=== PATIENT | male | born 1965 | race African-American/Black ===

== ENCOUNTER 2016-04-13 04:44 | Inpatient (IN) | payer MEDICAID ==
[~2016-04-13] VITALS: Ht 170.2 cm; Wt 112.7 kg
[~2016-04-13 04:44] MED LIST: ASPI-1079 PO; ATOR20TA PO; BENA10TA3 PO; HYDR-523 PO; LEVO300T6 PO; METO25TA6 PO
[2016-04-13] MEDS ORDERED: ASPIRIN 81MG TABLET PO ONE (05:15)
[2016-04-13] MEDS ORDERED: ONDANSETRON HCL 4MG/2ML VIAL IV ONE (05:30)
[2016-04-13] MEDS ORDERED: MORPHINE SULFATE 4 MG/ML CPJ (NOT FOR IM USE) IV ONE (05:30)
[2016-04-13 05:57] LABS: BASOPHILS % 1.5 % (0.0-2.0); EOSINOPHILS % 1.1 % (0.0-5.0); HEMATOCRIT. 34.9 % (42.0-52.0); HEMOGLOBIN. 11.7 g/dL (14.0-18.0); LYMPHOCYTES % 23.7 % (20.0-50.0); MEAN CORPUSCULAR HEMOGLOBIN 30.9 pg (28.0-32.0); MEAN CORPUSCULAR HGB CONC 33.6 g/dL (31.0-37.0); MONOCYTES % 5.3 % (2.0-8.0); NEUTROPHILS % 68.4 % (40.0-76.0); PLATELET 243 x1000/uL (130-400); RED BLOOD CELL COUNT 3.79 mill/uL (4.7-6.1); RED CELL DISTRIBUTION WIDTH 15.7 % (11.6-14.6); WHITE BLOOD COUNT 8.1 x1000/uL (4.5-11.0)
[2016-04-13 06:05] LABS: INR 1.1; PROTHROMBIN TIME 11.1 sec
[2016-04-13 06:20] LABS: ALANINE AMINOTRANSFERASE 17 IU/L (13-61); ALBUMIN 3.8 g/dL (3.4-5.0); ANION GAP 9; CALCIUM 8.4 mg/dL (8.5-10.1); CARBON DIOXIDE 31 mEq/L (21-32); CHLORIDE 106 mEq/L (98-107); INDEX HEMOLYSI 1 (1-3); INDEX ICTERIC 1 (1-4); INDEX LIPEMIC 1 (1-3); NT PRO B-TYPE NATRIURETIC PEP 17 pg/mL (5-125); TROPONIN I < 0.02 ng/mL (0.00-0.04); UREA NITROGEN BLOOD 19 mg/dL (7-21); eGFR 43 mL/min (>60)
[2016-04-13 08:03] LABS: CLARITY URINE CLEAR (CLEAR); COLOR URINE YELLOW (YELLOW); GLUCOSE URINE NEGATIVE (NEGATIVE); KETONES URINE NEGATIVE (NEGATIVE); LEUKOCYTE ESTERASE URINE TRACE (NEGATIVE); NITRITE URINE NEGATIVE (NEGATIVE); OCCULT BLOOD URINE NEGATIVE (NEGATIVE); PH URINE 6.5 (4.5-8.0); PROTEIN URINE NEGATIVE (NEGATIVE); SPECIFIC GRAVITY URINE 1.024 (1.005-1.030); UROBILINOGEN URINE 0.2 E.U./dL (0.2-1.0)
[2016-04-13 08:17] LABS: *AMPHETAMINES SCREEN URINE NEGATIVE (NEGATIVE); *BARBITURATES SCREEN URINE NEGATIVE (NEGATIVE); *BENZODIAZEPINES SCREEN URINE NEGATIVE (NEGATIVE); *COCAINE SCREEN URINE PRESUMTIVE POSITIVE (NEGATIVE); CANNABINOID URINE SCREEN PRESUMTIVE POSITIVE (NEGATIVE); ECSTASY MDMA SCREEN URINE NEGATIVE (NEGATIVE); METHADONE URINE SCREEN NEGATIVE (NEGATIVE); OPIATES URINE SCREEN PRESUMTIVE POSITIVE (NEGATIVE); PHENCYCLIDINE URINE SCREEN NEGATIVE (NEGATIVE)
[2016-04-13 08:40] LABS: MUCUS URINE 1+ /lpf (NONE/TRACE); SQUAMOUS EPITHELIAL CELL URINE 2+ /lpf (RARE/1+)
[2016-04-13 08:41] LABS: BACTERIA URINE TRACE; RBC URINE 0-2 /hpf (0-2); WBC URINE 0-2 /hpf (0-2)
[2016-04-13 08:42] LABS: YEAST URINE FEW
[2016-04-13 12:00] VITALS: BP 123/84
[2016-04-13 12:30] VITALS: BP 123/84
[2016-04-13] MEDS ORDERED: LORAZEPAM 1MG TABLET PO PRN (12:45)
[2016-04-13] MEDS ORDERED: IPRATROPIUM/ALBUTEROL 0.5-3(2.5)MG/3ML NEB INH PRN (12:45)
[2016-04-13] MEDS ORDERED: ACETAMINOPHEN 325MG TABLET PO PRN (12:45)
[2016-04-13] MEDS ORDERED: ONDANSETRON HCL 4MG/2ML VIAL IV PRN (12:45)
[2016-04-13] MEDS ORDERED: CLONIDINE 0.1MG TABLET PO PRN (12:45)
[2016-04-13] MEDS ORDERED: DOCUSATE SODIUM 100MG CAPSULE PO PRN (12:45)
[2016-04-13] MEDS ORDERED: ENOXAPARIN 40MG/0.4ML SYR SUBCUT SCH (13:30)
[2016-04-13] MEDS ORDERED: DEXTROSE 50% WATER 50ML SYRINGE IV PRN ×2 (13:45→14:15)
[2016-04-13] MEDS: LISINOPRIL 10MG TABLET PO SCH (14:05)
[2016-04-13] MEDS: AMLODIPINE 10MG TABLET PO SCH (14:05)
[2016-04-13 15:48] LABS: CREATINE KINASE MB FRACTION 1.7 ng/mL (0.5-3.6); TROPONIN I < 0.02 ng/mL (0.00-0.04)
[2016-04-13 16:00] VITALS: BP 142/86
[2016-04-13] MEDS ORDERED: BLOOD SUGAR DIAGNOSTIC STRIP TEST SCH (16:45)
[2016-04-13] MEDS ORDERED: INSULIN LISPRO 100 UNITS/ML SUBCUT SCH (17:15)
[2016-04-13 20:00] VITALS: BP 115/69
[2016-04-13] MEDS: ATORVASTATIN CALCIUM 40MG TABLET PO SCH (21:52)
[2016-04-13] MEDS: ENOXAPARIN 30MG/0.3ML SYR SUBCUT SCH (21:55)
[2016-04-14] VITALS: BP 99/74
[2016-04-14 00:18] LABS: CREATINE KINASE MB FRACTION 1.5 ng/mL (0.5-3.6); TROPONIN I < 0.02 ng/mL (0.00-0.04)
[2016-04-14 04:00] VITALS: BP 112/70
[2016-04-14 08:28] LABS: BASOPHILS % 0.4 % (0.0-2.0); EOSINOPHILS % 1.3 % (0.0-5.0); HEMATOCRIT. 36.8 % (42.0-52.0); LYMPHOCYTES % 24.2 % (20.0-50.0); MEAN CORPUSCULAR HGB CONC 32.6 g/dL (31.0-37.0); MEAN CORPUSCULAR VOLUME 91.8 fL (80.0-94.0); MEAN PLATELET VOLUME 7.9 fl (7.4-10.4); MONOCYTES % 4.1 % (2.0-8.0); PLATELET 239 x1000/uL (130-400); RED CELL DISTRIBUTION WIDTH 15.7 % (11.6-14.6); WHITE BLOOD COUNT 7.2 x1000/uL (4.5-11.0)
[2016-04-14 08:30] VITALS: BP 128/80
[2016-04-14 08:45] LABS: ALANINE AMINOTRANSFERASE 16 IU/L (13-61); ALBUMIN 3.4 g/dL (3.4-5.0); ANION GAP 11; CALCIUM 8.3 mg/dL (8.5-10.1); CARBON DIOXIDE 29 mEq/L (21-32); CHLORIDE 105 mEq/L (98-107); HDL CHOLESTEROL 36 mg/dL (40-59); INDEX HEMOLYSI 1 (1-3); INDEX ICTERIC 1 (1-4); INDEX LIPEMIC 1 (1-3); LDL CHOLESTEROL 130 mg/dL (5-100); T3 FREE 1.15 pg/ml (2.18-3.98); T4 FREE 0.47 ng/dL (0.76-1.46); TRIGLYCERIDE 172 mg/dL (0-150); UREA NITROGEN BLOOD 18 mg/dL (7-21); eGFR 49 mL/min (>60)
[2016-04-14] MEDS: ENOXAPARIN 30MG/0.3ML SYR SUBCUT SCH ×2 (09:04→22:24)
[2016-04-14] MEDS: ASPIRIN 325MG EC TABLET PO SCH (09:04)
[2016-04-14] MEDS: LISINOPRIL 10MG TABLET PO SCH (09:04)
[2016-04-14] MEDS: AMLODIPINE 10MG TABLET PO SCH (09:04)
[2016-04-14] MEDS ORDERED: LEVOTHYROXINE SODIUM 50MCG TABLET PO SCH (11:00)
[2016-04-14 12:00] VITALS: BP 127/81
[2016-04-14 16:00] VITALS: BP 108/61
[2016-04-14 20:00] VITALS: BP 123/74
[2016-04-14] MEDS: ATORVASTATIN CALCIUM 40MG TABLET PO SCH (22:23)
[2016-04-14] MEDS: HYDROCODONE/ACETAMINOPHEN 5/325MG TABLET PO PRN (22:25)
[2016-04-15] VITALS (7 sets, daily range): BP systolic 113–143; BP diastolic 65–92
[2016-04-15] MEDS ORDERED: LEVOTHYROXINE SODIUM 100 MCG/ VIAL IV SCH (00:23)
[2016-04-15 06:20] LABS: HEMATOCRIT. 36.1 % (42.0-52.0); MEAN CORPUSCULAR HGB CONC 33.2 g/dL (31.0-37.0); MEAN CORPUSCULAR VOLUME 90.4 fL (80.0-94.0); PLATELET 244 x1000/uL (130-400); RED BLOOD CELL COUNT 3.99 mill/uL (4.7-6.1); RED CELL DISTRIBUTION WIDTH 16.1 % (11.6-14.6); WHITE BLOOD COUNT 6.4 x1000/uL (4.5-11.0)
[2016-04-15 06:23] LABS: DIFFERENTIAL COMMENT 1
[2016-04-15] MEDS: LEVOTHYROXINE SODIUM 100 MCG/ VIAL IV SCH (06:44)
[2016-04-15 06:50] LABS: CALCIUM 8.4 mg/dL (8.5-10.1)
[2016-04-15] MEDS: ENOXAPARIN 30MG/0.3ML SYR SUBCUT SCH ×2 (09:00→21:24)
[2016-04-15] MEDS: ASPIRIN 325MG EC TABLET PO SCH (10:02)
[2016-04-15] MEDS: LISINOPRIL 10MG TABLET PO SCH (10:02)
[2016-04-15] MEDS: AMLODIPINE 10MG TABLET PO SCH (10:03)
[2016-04-15 11:44] LABS: PLATELET ESTIMATE NORMAL
[2016-04-15] MEDS: HYDROCODONE/ACETAMINOPHEN 5/325MG TABLET PO PRN (18:55)
[2016-04-15] MEDS: MORPHINE SULFATE 2 MG/ML CPJ (NOT FOR IM USE) IV PRN (21:24)
[2016-04-15] MEDS: ATORVASTATIN CALCIUM 40MG TABLET PO SCH ×2 (21:24→21:32)
[2016-04-16] VITALS: BP 114/72
[2016-04-16 04:00] VITALS: BP 118/68
[2016-04-16] MEDS: LEVOTHYROXINE SODIUM 100 MCG/ VIAL IV SCH (06:13)
[2016-04-16] MEDS: HYDROCODONE/ACETAMINOPHEN 5/325MG TABLET PO PRN (06:14)
[2016-04-16 08:00] VITALS: BP 120/73
[2016-04-16] MEDS: LISINOPRIL 10MG TABLET PO SCH (09:35)
[2016-04-16] MEDS: ASPIRIN 325MG EC TABLET PO SCH (09:35)
[2016-04-16] MEDS: AMLODIPINE 10MG TABLET PO SCH (09:35)
[2016-04-16] MEDS: ENOXAPARIN 30MG/0.3ML SYR SUBCUT SCH ×2 (09:36→20:31)
[2016-04-16 11:16] LABS: BASOPHILS % 1.1 % (0.0-2.0); EOSINOPHILS % 1.9 % (0.0-5.0); HEMATOCRIT. 34.9 % (42.0-52.0); HEMOGLOBIN. 11.7 g/dL (14.0-18.0); LYMPHOCYTES % 25.5 % (20.0-50.0); MEAN CORPUSCULAR HEMOGLOBIN 30.7 pg (28.0-32.0); MEAN CORPUSCULAR HGB CONC 33.4 g/dL (31.0-37.0); MEAN CORPUSCULAR VOLUME 91.9 fL (80.0-94.0); MEAN PLATELET VOLUME 8.5 fl (7.4-10.4); MONOCYTES % 5.6 % (2.0-8.0); NEUTROPHILS % 65.9 % (40.0-76.0); PLATELET 229 x1000/uL (130-400); RED CELL DISTRIBUTION WIDTH 15.9 % (11.6-14.6)
[2016-04-16 11:35] LABS: ALANINE AMINOTRANSFERASE 16 IU/L (13-61); ALBUMIN 3.2 g/dL (3.4-5.0); ANION GAP 9; CALCIUM 8.2 mg/dL (8.5-10.1); CARBON DIOXIDE 28 mEq/L (21-32); CHLORIDE 106 mEq/L (98-107); INDEX HEMOLYSI 1 (1-3); INDEX ICTERIC 1 (1-4); INDEX LIPEMIC 1 (1-3); UREA NITROGEN BLOOD 16 mg/dL (7-21); eGFR 56 mL/min (>60)
[2016-04-16 12:00] VITALS: BP 122/72
[2016-04-16 16:00] VITALS: BP 128/76
[2016-04-16 20:00] VITALS: BP 124/83
[2016-04-16] MEDS: ATORVASTATIN CALCIUM 40MG TABLET PO SCH (20:30)
[2016-04-16] MEDS: MORPHINE SULFATE 2 MG/ML CPJ (NOT FOR IM USE) IV PRN (23:48)
[2016-04-17] VITALS: BP 130/82
[2016-04-17 04:00] VITALS: BP 128/74
[2016-04-17] MEDS: LEVOTHYROXINE SODIUM 100 MCG/ VIAL IV SCH (06:19)
[2016-04-17 06:50] LABS: BASOPHILS % 0.8 % (0.0-2.0); EOSINOPHILS % 2.1 % (0.0-5.0); HEMATOCRIT. 33.7 % (42.0-52.0); HEMOGLOBIN. 11.2 g/dL (14.0-18.0); LYMPHOCYTES % 28.5 % (20.0-50.0); MEAN CORPUSCULAR HEMOGLOBIN 30.6 pg (28.0-32.0); MEAN CORPUSCULAR HGB CONC 33.3 g/dL (31.0-37.0); MEAN CORPUSCULAR VOLUME 91.9 fL (80.0-94.0); MEAN PLATELET VOLUME 8.7 fl (7.4-10.4); MONOCYTES % 6.2 % (2.0-8.0); NEUTROPHILS % 62.4 % (40.0-76.0); PLATELET 212 x1000/uL (130-400); RED BLOOD CELL COUNT 3.66 mill/uL (4.7-6.1); RED CELL DISTRIBUTION WIDTH 15.9 % (11.6-14.6); WHITE BLOOD COUNT 7.7 x1000/uL (4.5-11.0)
[2016-04-17 08:00] VITALS: BP 124/75
[2016-04-17 08:00] LABS: CALCIUM 8.7 mg/dL (8.5-10.1)
[2016-04-17] MEDS: LISINOPRIL 10MG TABLET PO SCH (09:16)
[2016-04-17] MEDS: AMLODIPINE 10MG TABLET PO SCH (09:16)
[2016-04-17] MEDS: ASPIRIN 325MG EC TABLET PO SCH (09:16)
[2016-04-17] MEDS: ENOXAPARIN 30MG/0.3ML SYR SUBCUT SCH ×2 (09:19→20:41)
[2016-04-17 12:00] VITALS: BP 129/80
[2016-04-17 16:00] VITALS: BP 135/83
[2016-04-17 20:00] VITALS: BP 122/74
[2016-04-17] MEDS: ATORVASTATIN CALCIUM 40MG TABLET PO SCH (20:41)
[2016-04-17] MEDS: MORPHINE SULFATE 2 MG/ML CPJ (NOT FOR IM USE) IV PRN (20:55)
[2016-04-18] VITALS: BP 128/75
[2016-04-18 04:00] VITALS: BP 123/78
[2016-04-18] MEDS: LEVOTHYROXINE SODIUM 100 MCG/ VIAL IV SCH (07:05)
[2016-04-18 08:00] VITALS: BP 127/76
[2016-04-18] MEDS: ASPIRIN 325MG EC TABLET PO SCH (08:39)
[2016-04-18] MEDS: AMLODIPINE 10MG TABLET PO SCH (08:40)
[2016-04-18] MEDS: LISINOPRIL 10MG TABLET PO SCH (08:40)
[2016-04-18] MEDS: ENOXAPARIN 30MG/0.3ML SYR SUBCUT SCH (08:41)
[2016-04-18] MEDS ORDERED: LEVO300T6 PO (11:48)
[2016-04-18] MEDS ORDERED: ASPI-1079 PO (11:48)
[2016-04-18] MEDS ORDERED: LIP40 PO (11:48)
[2016-04-18] MEDS ORDERED: Lisinopril PO (11:48)
[2016-04-18] MEDS ORDERED: AMLO10TA80 PO (11:48)
[2016-04-18 12:00] VITALS: BP 120/80
[2016-04-18 14:52] VITALS: BP 124/82
[2016-04-18 18:09] VITALS: BP 120/71
== END 2016-04-18 18:40 | disposition home or self-care (01) | DRG 194 ==
LOC: ER 04:45 → 5WST 07:24 → SUPCPDRO 08:23
PROVIDERS: ADMIT Internal Medicine; ATTEND Internal Medicine
DX: I13.0 Hypertensive heart and chronic kidney disease with heart failure and stage 1 through stage 4 chronic kidney disease, or unspecified chronic kidney disease (principal); E11.22 Type 2 diabetes mellitus with diabetic chronic kidney disease; N17.9 Acute kidney failure, unspecified; E27.8 Other specified disorders of adrenal gland; N18.3 Chronic kidney disease, stage 3 (moderate); E11.65 Type 2 diabetes mellitus with hyperglycemia; E66.01 Morbid (severe) obesity due to excess calories; F14.188 Cocaine abuse with other cocaine-induced disorder; I50.9 Heart failure, unspecified; E03.9 Hypothyroidism, unspecified; E78.00 Pure hypercholesterolemia, unspecified; F17.210 Nicotine dependence, cigarettes, uncomplicated; G47.30 Sleep apnea, unspecified; I25.10 Atherosclerotic heart disease of native coronary artery without angina pectoris; G89.29 Other chronic pain; N32.89 Other specified disorders of bladder; F12.10 Cannabis abuse, uncomplicated; M54.2 Cervicalgia; I70.8 Atherosclerosis of other arteries; M54.9 Dorsalgia, unspecified; R26.9 Unspecified abnormalities of gait and mobility; Z59.0 Homelessness; Z68.38 Body mass index [BMI] 38.0-38.9, adult; Z91.14 Patient's other noncompliance with medication regimen; Z87.828 Personal history of other (healed) physical injury and trauma; Z90.49 Acquired absence of other specified parts of digestive tract; Z82.49 Family history of ischemic heart disease and other diseases of the circulatory system
CPT/HCPCS: 36415; 71010; 76536; 80048; 80053; 80061; 80305; 81001; 82533; 82553; 83880; 84439; 84443; 84481; 84484; 85007; 85025; 85027; 85610; 87040; 87070; 87493; 93005; 93970; 94640; 94660; 96374; 96375; 97110; 97162; 97530; 99285; 99406; J1650; J2270; J2405; J3490; J7620

== ENCOUNTER 2016-06-13 19:40 | Inpatient (IN) | payer MEDICAID ==
[~2016-06-13] VITALS: Ht 182.9 cm; Wt 158.8 kg
[~2016-06-13 19:40] MED LIST changes: +AMLO10TA80 PO; -ATOR20TA PO; -BENA10TA3 PO; +LIP40 PO; +Lisinopril PO; -METO25TA6 PO
[2016-06-13] MEDS ORDERED: ONDANSETRON HCL 4MG/2ML VIAL IV STA (20:48)
[2016-06-13] MEDS ORDERED: ONDANSETRON 4MG ODT PO ONE (21:45)
[2016-06-13] MEDS ORDERED: HYDROCODONE/ACETAMINOPHEN 5/325MG TABLET PO ONE (21:45)
[2016-06-13] MEDS ORDERED: ASPIRIN 325MG TABLET PO ONE (21:45)
[2016-06-13 22:20] LABS: EOSINOPHILS % 1.6 % (0.0-5.0); HEMATOCRIT. 37.6 % (42.0-52.0); HEMOGLOBIN. 12.5 g/dL (14.0-18.0); LYMPHOCYTES % 19.8 % (20.0-50.0); MEAN CORPUSCULAR HEMOGLOBIN 30.7 pg (28.0-32.0); MEAN CORPUSCULAR HGB CONC 33.3 g/dL (31.0-37.0); MEAN CORPUSCULAR VOLUME 92.2 fL (80.0-94.0); MEAN PLATELET VOLUME 7.9 fl (7.4-10.4); MONOCYTES % 5.9 % (2.0-8.0); NEUTROPHILS % 71.7 % (40.0-76.0); PLATELET 219 x1000/uL (130-400); RED BLOOD CELL COUNT 4.07 mill/uL (4.7-6.1); RED CELL DISTRIBUTION WIDTH 15.9 % (11.6-14.6); WHITE BLOOD COUNT 9.4 x1000/uL (4.5-11.0)
[2016-06-13 22:25] LABS: CHLORIDE 105 mEq/L (98-107); INDEX HEMOLYSI 1 (1-3); INDEX ICTERIC 1 (1-4); INDEX LIPEMIC 1 (1-3)
[2016-06-13 22:26] LABS: PARTIAL THROMBOPLASTIN TIME 27.3 sec (24.0-34.0); PROTHROMBIN TIME 10.8 sec
[2016-06-13] MEDS ORDERED: LORAZEPAM 1MG TABLET PO ONE (22:30)
[2016-06-13] MEDS ORDERED: HYDRALAZINE 20MG/ML VIAL IV ONE (22:30)
[2016-06-13 22:34] LABS: ALANINE AMINOTRANSFERASE 25 IU/L (13-61); ALBUMIN 3.4 g/dL (3.4-5.0); ANION GAP 12; CALCIUM 8.4 mg/dL (8.5-10.1); CARBON DIOXIDE 28 mEq/L (21-32); ETHANOL BLOOD < 10 mg/dL; LIPASE 85 IU/L (73-393); TROPONIN I < 0.02 ng/mL (0.00-0.04); UREA NITROGEN BLOOD 18 mg/dL (7-21); eGFR 46 mL/min (>60)
[2016-06-13 22:43] LABS: CREATINE KINASE 1074 IU/L (39-308)
[2016-06-13] MEDS ORDERED: CLONIDINE 0.1MG TABLET PO PRN (23:30)
[2016-06-13] MEDS ORDERED: DIPHENHYDRAMINE 50MG/ML VIAL IV PRN (23:30)
[2016-06-13] MEDS ORDERED: ACETAMINOPHEN 325MG TABLET PO PRN (23:30)
[2016-06-13] MEDS ORDERED: ONDANSETRON HCL 4MG/2ML VIAL IV PRN (23:30)
[2016-06-13] MEDS ORDERED: IPRATROPIUM/ALBUTEROL 0.5-3(2.5)MG/3ML NEB INH PRN (23:30)
[2016-06-14 01:59] LABS: CLARITY URINE CLEAR (CLEAR); COLOR URINE YELLOW (YELLOW); GLUCOSE URINE NEGATIVE (NEGATIVE); KETONES URINE TRACE (NEGATIVE); LEUKOCYTE ESTERASE URINE TRACE (NEGATIVE); NITRITE URINE NEGATIVE (NEGATIVE); OCCULT BLOOD URINE NEGATIVE (NEGATIVE); PH URINE 5.5 (4.5-8.0); PROTEIN URINE TRACE (NEGATIVE); SPECIFIC GRAVITY URINE 1.027 (1.005-1.030)
[2016-06-14 02:14] LABS: *AMPHETAMINES SCREEN URINE NEGATIVE (NEGATIVE); *BARBITURATES SCREEN URINE NEGATIVE (NEGATIVE); *BENZODIAZEPINES SCREEN URINE NEGATIVE (NEGATIVE); *COCAINE SCREEN URINE PRESUMTIVE POSITIVE (NEGATIVE); CANNABINOID URINE SCREEN PRESUMTIVE POSITIVE (NEGATIVE); ECSTASY MDMA SCREEN URINE NEGATIVE (NEGATIVE); METHADONE URINE SCREEN NEGATIVE (NEGATIVE); OPIATES URINE SCREEN NEGATIVE (NEGATIVE); PHENCYCLIDINE URINE SCREEN NEGATIVE (NEGATIVE)
[2016-06-14 02:30] LABS: SQUAMOUS EPITHELIAL CELL URINE FEW /lpf (RARE/1+)
[2016-06-14 02:33] LABS: WBC URINE 0-2 /hpf (0-2)
[2016-06-14 02:34] LABS: RBC URINE 0-2 /hpf (0-2)
[2016-06-14 02:40] LABS: BACTERIA URINE TRACE
[2016-06-14 05:20] LABS: EOSINOPHILS % 1.2 % (0.0-5.0); HEMATOCRIT. 38.3 % (42.0-52.0); HEMOGLOBIN. 12.6 g/dL (14.0-18.0); LYMPHOCYTES % 18.5 % (20.0-50.0); MEAN CORPUSCULAR HEMOGLOBIN 30.3 pg (28.0-32.0); MEAN CORPUSCULAR HGB CONC 32.9 g/dL (31.0-37.0); MEAN CORPUSCULAR VOLUME 92.3 fL (80.0-94.0); MEAN PLATELET VOLUME 8.4 fl (7.4-10.4); MONOCYTES % 8.5 % (2.0-8.0); NEUTROPHILS % 70.8 % (40.0-76.0); PLATELET 213 x1000/uL (130-400); RED BLOOD CELL COUNT 4.15 mill/uL (4.7-6.1); RED CELL DISTRIBUTION WIDTH 16.3 % (11.6-14.6); WHITE BLOOD COUNT 10.4 x1000/uL (4.5-11.0)
[2016-06-14 05:40] LABS: ALANINE AMINOTRANSFERASE 24 IU/L (13-61); ALBUMIN 3.5 g/dL (3.4-5.0); ANION GAP 11; CALCIUM 8.4 mg/dL (8.5-10.1); CARBON DIOXIDE 30 mEq/L (21-32); CHLORIDE 104 mEq/L (98-107); HDL CHOLESTEROL 43 mg/dL (40-59); INDEX HEMOLYSI 1 (1-3); INDEX ICTERIC 1 (1-4); INDEX LIPEMIC 1 (1-3); LDL CHOLESTEROL 225 mg/dL (5-100); TRIGLYCERIDE 153 mg/dL (0-150); TROPONIN I < 0.02 ng/mL (0.00-0.04); UREA NITROGEN BLOOD 16 mg/dL (7-21); eGFR 56 mL/min (>60)
[2016-06-14] MEDS ORDERED: IPRATROPIUM/ALBUTEROL 0.5-3(2.5)MG/3ML NEB HHN PRN (11:00)
[2016-06-14] MEDS: HYDROCODONE/ACETAMINOPHEN 5/325MG TABLET PO PRN ×3 (11:39→21:11)
[2016-06-14] MEDS: LEVOFLOXACIN 500MG PREMIX 100 ML IV SCH ×2 (11:40→15:29)
[2016-06-14 12:00] VITALS: BP 99/75
[2016-06-14 12:40] VITALS: BP 99/75
[2016-06-14] MEDS ORDERED: SODIUM CHLORIDE 10% FOR INH 15ML VIAL NEB INH NR (13:30)
[2016-06-14 16:00] VITALS: BP 128/92
[2016-06-14] MEDS: SODIUM CHLORIDE 0.9% 1,000 ML IV SCH (17:04)
[2016-06-14 20:44] VITALS: BP 123/75
[2016-06-14] MEDS ORDERED: ATORVASTATIN CALCIUM 40MG TABLET PO SCH (21:00)
[2016-06-14] MEDS: VERAPAMIL HCL 80 MG TABLET PO SCH (21:11)
[2016-06-14 23:57] VITALS: BP 120/70
[2016-06-15] MEDS: HYDROCODONE/ACETAMINOPHEN 5/325MG TABLET PO PRN ×4 (01:23→16:28)
[2016-06-15 04:50] VITALS: BP 132/87
[2016-06-15] MEDS: VERAPAMIL HCL 80 MG TABLET PO SCH ×3 (05:44→21:55)
[2016-06-15 06:57] LABS: BASOPHILS % 0.7 % (0.0-2.0); HEMOGLOBIN. 11.6 g/dL (14.0-18.0); MEAN CORPUSCULAR HEMOGLOBIN 30.6 pg (28.0-32.0); MEAN CORPUSCULAR HGB CONC 33.2 g/dL (31.0-37.0); MEAN CORPUSCULAR VOLUME 92.3 fL (80.0-94.0); MEAN PLATELET VOLUME 8.1 fl (7.4-10.4); MONOCYTES % 8.5 % (2.0-8.0); NEUTROPHILS % 73.8 % (40.0-76.0); PLATELET 201 x1000/uL (130-400); RED BLOOD CELL COUNT 3.79 mill/uL (4.7-6.1); WHITE BLOOD COUNT 8.9 x1000/uL (4.5-11.0)
[2016-06-15 07:19] LABS: CALCIUM 8.8 mg/dL (8.5-10.1)
[2016-06-15 08:00] VITALS: BP 134/85
[2016-06-15] MEDS: IPRATROPIUM/ALBUTEROL 0.5-3(2.5)MG/3ML NEB HHN SCH ×5 (09:15→23:48)
[2016-06-15] MEDS: SODIUM CHLORIDE 0.9% 1,000 ML IV SCH (11:05)
[2016-06-15 11:14] LABS: CREATINE KINASE 394 IU/L (39-308); INDEX HEMOLYSI 1 (1-3)
[2016-06-15] MEDS: LEVOFLOXACIN 500MG PREMIX 100 ML IV SCH (13:28)
[2016-06-15] MEDS ORDERED: FUROSEMIDE 20MG/2ML VIAL IVP NR (14:30)
[2016-06-15 15:38] LABS: BG CARBOXYHEMOGLOBIN 0.5 % (0.5-1.5); BG DEOXYHEMOGLOBIN 7.9 % (0.0-5.0); BG FRACTION INSPIRED OXYGEN 40; BG HCO3 ACT 27.1 mmol/L (22.0-26.0); BG METHEMOGLOBIN 0.1 % (0.0-1.5); BG OXYGEN SATURATION 92.1 % (92.0-98.5); BG OXYHEMOGLOBIN 91.5 % (94.0-97.0); BG PCO2 44.2 mmHg (35.0-45.0); BG PH 7.405 (7.350-7.450); BG PO2 61.9 mmHg (75.0-100.0); BG SAMPLE SITE RIGHT RADIAL; BG VENT MODE NASAL CANNULA
[2016-06-15 20:00] VITALS: BP 129/79
[2016-06-16] VITALS: BP 132/72
[2016-06-16 04:00] VITALS: BP 176/91
[2016-06-16] MEDS: IPRATROPIUM/ALBUTEROL 0.5-3(2.5)MG/3ML NEB HHN SCH ×6 (05:25→23:59)
[2016-06-16] MEDS: VERAPAMIL HCL 80 MG TABLET PO SCH ×3 (06:10→21:03)
[2016-06-16 07:01] LABS: BASOPHILS % 0.5 % (0.0-2.0); EOSINOPHILS % 1.6 % (0.0-5.0); HEMATOCRIT. 33.8 % (42.0-52.0); HEMOGLOBIN. 11.2 g/dL (14.0-18.0); LYMPHOCYTES % 18.8 % (20.0-50.0); MEAN CORPUSCULAR HEMOGLOBIN 30.3 pg (28.0-32.0); MEAN CORPUSCULAR VOLUME 91.8 fL (80.0-94.0); MEAN PLATELET VOLUME 8.2 fl (7.4-10.4); MONOCYTES % 6.2 % (2.0-8.0); NEUTROPHILS % 72.9 % (40.0-76.0); PLATELET 209 x1000/uL (130-400); RED BLOOD CELL COUNT 3.68 mill/uL (4.7-6.1)
[2016-06-16 07:09] LABS: CALCIUM 8.9 mg/dL (8.5-10.1); MAGNESIUM 2.5 mg/dL (1.8-2.4); PHOSPHORUS 2.7 mg/dL (2.5-4.9)
[2016-06-16 08:00] VITALS: BP 117/86
[2016-06-16] MEDS: LEVOFLOXACIN 500MG PREMIX 100 ML IV SCH (11:10)
[2016-06-16 11:54] VITALS: BP 104/69
[2016-06-16 13:00] LABS: BG BASE EXCESS 2.6 mmol/L (-2.0-2.0); BG CARBOXYHEMOGLOBIN 0.1 % (0.5-1.5); BG DEOXYHEMOGLOBIN 13.6 % (0.0-5.0); BG FRACTION INSPIRED OXYGEN 21; BG HCO3 ACT 26.3 mmol/L (22.0-26.0); BG OXYGEN SATURATION 86.4 % (92.0-98.5); BG OXYHEMOGLOBIN 86.3 % (94.0-97.0); BG PCO2 37.1 mmHg (35.0-45.0); BG PH 7.468 (7.350-7.450); BG PO2 49.3 mmHg (75.0-100.0); BG SAMPLE SITE RIGHT RADIAL; BG TOTAL HEMOGLOBIN 11.8 g/dL (12.0-18.0); BG VENT MODE ROOM AIR
[2016-06-16] MEDS: FUROSEMIDE 40MG/4ML VIAL IVP SCH (15:24)
[2016-06-16 16:00] VITALS: BP 144/90
[2016-06-16 20:00] VITALS: BP 140/94
[2016-06-16] MEDS: HYDROCODONE/ACETAMINOPHEN 5/325MG TABLET PO PRN (21:55)
[2016-06-17] VITALS: BP 109/74
[2016-06-17] MEDS: IPRATROPIUM/ALBUTEROL 0.5-3(2.5)MG/3ML NEB HHN SCH ×6 (03:48→23:54)
[2016-06-17 04:00] VITALS: BP 118/84
[2016-06-17] MEDS: VERAPAMIL HCL 80 MG TABLET PO SCH (05:51)
[2016-06-17 07:33] LABS: BASOPHILS % 1.1 % (0.0-2.0); EOSINOPHILS % 2.2 % (0.0-5.0); HEMOGLOBIN. 10.7 g/dL (14.0-18.0); LYMPHOCYTES % 18.2 % (20.0-50.0); MEAN CORPUSCULAR HEMOGLOBIN 30.6 pg (28.0-32.0); MEAN CORPUSCULAR HGB CONC 33.4 g/dL (31.0-37.0); MEAN CORPUSCULAR VOLUME 91.5 fL (80.0-94.0); MEAN PLATELET VOLUME 8.4 fl (7.4-10.4); NEUTROPHILS % 71.5 % (40.0-76.0); PLATELET 205 x1000/uL (130-400); RED CELL DISTRIBUTION WIDTH 15.5 % (11.6-14.6)
[2016-06-17 08:00] VITALS: BP 157/93
[2016-06-17 09:01] LABS: CALCIUM 8.7 mg/dL (8.5-10.1)
[2016-06-17] MEDS: FUROSEMIDE 40MG/4ML VIAL IVP SCH (09:38)
[2016-06-17] MEDS: LEVOFLOXACIN 500MG PREMIX 100 ML IV SCH (11:01)
[2016-06-17 11:42] VITALS: BP 139/87
[2016-06-17] MEDS ORDERED: HYDROCODONE/ACETAMINOPHEN 5/325MG TABLET PO PRN (12:15)
[2016-06-17] MEDS ORDERED: VERAPAMIL HCL 120MG TABLET PO SCH (14:00)
[2016-06-17] MEDS: GABAPENTIN 300MG CAPSULE PO SCH ×2 (14:48→22:46)
[2016-06-17] MEDS: LEVOTHYROXINE SODIUM 50MCG TABLET PO SCH (14:48)
[2016-06-17] MEDS: AMLODIPINE 10MG TABLET PO SCH (14:48)
[2016-06-17 15:57] VITALS: BP 143/86
[2016-06-17] MEDS: VERAPAMIL HCL 120MG TABLET PO SCH (17:09)
[2016-06-17] MEDS: ATORVASTATIN CALCIUM 40MG TABLET PO SCH (20:32)
[2016-06-17] MEDS: LISINOPRIL 10MG TABLET PO SCH (20:32)
[2016-06-18] VITALS: BP 132/89
[2016-06-18] MEDS: VERAPAMIL HCL 120MG TABLET PO SCH ×3 (01:14→16:03)
[2016-06-18] MEDS: IPRATROPIUM/ALBUTEROL 0.5-3(2.5)MG/3ML NEB HHN SCH ×3 (03:51→20:58)
[2016-06-18 04:00] VITALS: BP 109/65
[2016-06-18] MEDS: GABAPENTIN 300MG CAPSULE PO SCH ×3 (06:17→21:22)
[2016-06-18] MEDS: LEVOTHYROXINE SODIUM 50MCG TABLET PO SCH (06:17)
[2016-06-18 07:00] LABS: BASOPHILS % 1.3 % (0.0-2.0); EOSINOPHILS % 2.8 % (0.0-5.0); HEMATOCRIT. 31.8 % (42.0-52.0); HEMOGLOBIN. 10.7 g/dL (14.0-18.0); LYMPHOCYTES % 23.2 % (20.0-50.0); MEAN CORPUSCULAR HEMOGLOBIN 30.6 pg (28.0-32.0); MEAN CORPUSCULAR HGB CONC 33.5 g/dL (31.0-37.0); MEAN CORPUSCULAR VOLUME 91.3 fL (80.0-94.0); MEAN PLATELET VOLUME 8.1 fl (7.4-10.4); NEUTROPHILS % 66.7 % (40.0-76.0); PLATELET 224 x1000/uL (130-400); RED BLOOD CELL COUNT 3.49 mill/uL (4.7-6.1); RED CELL DISTRIBUTION WIDTH 15.4 % (11.6-14.6); WHITE BLOOD COUNT 8.1 x1000/uL (4.5-11.0)
[2016-06-18 07:37] VITALS: BP 124/71
[2016-06-18 07:55] LABS: CALCIUM 8.4 mg/dL (8.5-10.1)
[2016-06-18] MEDS: LISINOPRIL 10MG TABLET PO SCH ×2 (09:00→21:22)
[2016-06-18] MEDS: FUROSEMIDE 40MG/4ML VIAL IVP SCH (09:01)
[2016-06-18] MEDS: AMLODIPINE 10MG TABLET PO SCH (09:02)
[2016-06-18 11:36] LABS: BG BASE EXCESS 1.3 mmol/L (-2.0-2.0); BG CARBOXYHEMOGLOBIN 0.3 % (0.5-1.5); BG DEOXYHEMOGLOBIN 13.4 % (0.0-5.0); BG FRACTION INSPIRED OXYGEN 21; BG HCO3 ACT 25.3 mmol/L (22.0-26.0); BG METHEMOGLOBIN 0.3 % (0.0-1.5); BG OXYGEN SATURATION 86.5 % (92.0-98.5); BG PCO2 37.9 mmHg (35.0-45.0); BG PH 7.442 (7.350-7.450); BG PO2 52.7 mmHg (75.0-100.0); BG SAMPLE SITE RIGHT RADIAL; BG TOTAL HEMOGLOBIN 12.2 g/dL (12.0-18.0); BG VENT MODE ROOM AIR
[2016-06-18] MEDS: LEVOFLOXACIN 500MG PREMIX 100 ML IV SCH (11:38)
[2016-06-18 12:00] VITALS: BP 101/60
[2016-06-18 16:10] VITALS: BP 120/67
[2016-06-18 20:00] VITALS: BP 127/85
[2016-06-18] MEDS ORDERED: LACTULOSE 20G/30ML UDC PO PRN (20:00)
[2016-06-18] MEDS: ATORVASTATIN CALCIUM 40MG TABLET PO SCH (21:22)
[2016-06-18] MEDS: DOCUSATE SODIUM 100MG CAPSULE PO SCH (21:22)
[2016-06-19] VITALS: BP 128/80
[2016-06-19] MEDS: VERAPAMIL HCL 120MG TABLET PO SCH ×3 (00:42→16:00)
[2016-06-19] MEDS: IPRATROPIUM/ALBUTEROL 0.5-3(2.5)MG/3ML NEB HHN SCH ×5 (00:59→20:46)
[2016-06-19 04:00] VITALS: BP 124/87
[2016-06-19] MEDS: GABAPENTIN 300MG CAPSULE PO SCH ×3 (06:22→21:16)
[2016-06-19] MEDS: LEVOTHYROXINE SODIUM 50MCG TABLET PO SCH (06:22)
[2016-06-19 07:08] LABS: BASOPHILS % 1.1 % (0.0-2.0); EOSINOPHILS % 3.7 % (0.0-5.0); HEMATOCRIT. 31.9 % (42.0-52.0); HEMOGLOBIN. 10.5 g/dL (14.0-18.0); LYMPHOCYTES % 22.6 % (20.0-50.0); MEAN CORPUSCULAR HEMOGLOBIN 30.2 pg (28.0-32.0); MEAN CORPUSCULAR VOLUME 91.4 fL (80.0-94.0); MEAN PLATELET VOLUME 7.7 fl (7.4-10.4); MONOCYTES % 5.7 % (2.0-8.0); NEUTROPHILS % 66.9 % (40.0-76.0); PLATELET 228 x1000/uL (130-400); RED BLOOD CELL COUNT 3.49 mill/uL (4.7-6.1); RED CELL DISTRIBUTION WIDTH 15.7 % (11.6-14.6); WHITE BLOOD COUNT 7.2 x1000/uL (4.5-11.0)
[2016-06-19 07:30] LABS: CALCIUM 8.2 mg/dL (8.5-10.1)
[2016-06-19 07:36] VITALS: BP 132/93
[2016-06-19] MEDS: FUROSEMIDE 40MG/4ML VIAL IVP SCH (08:35)
[2016-06-19] MEDS: LISINOPRIL 10MG TABLET PO SCH ×2 (08:36→21:16)
[2016-06-19] MEDS: AMLODIPINE 10MG TABLET PO SCH (08:36)
[2016-06-19] MEDS: DOCUSATE SODIUM 100MG CAPSULE PO SCH ×2 (08:37→17:00)
[2016-06-19] MEDS: LEVOFLOXACIN 500MG PREMIX 100 ML IV SCH (10:36)
[2016-06-19 12:02] VITALS: BP 110/63
[2016-06-19 16:04] VITALS: BP 107/60
[2016-06-19 20:00] VITALS: BP 130/78
[2016-06-19] MEDS: ATORVASTATIN CALCIUM 40MG TABLET PO SCH (21:16)
[2016-06-20] MEDS: VERAPAMIL HCL 120MG TABLET PO SCH ×3 (00:05→16:00)
[2016-06-20 00:06] VITALS: BP 141/80
[2016-06-20] MEDS: IPRATROPIUM/ALBUTEROL 0.5-3(2.5)MG/3ML NEB HHN SCH ×5 (00:24→19:42)
[2016-06-20 04:00] VITALS: BP 100/52
[2016-06-20] MEDS: LEVOTHYROXINE SODIUM 50MCG TABLET PO SCH (06:04)
[2016-06-20] MEDS: GABAPENTIN 300MG CAPSULE PO SCH ×3 (06:04→21:29)
[2016-06-20 06:59] LABS: EOSINOPHILS % 3.3 % (0.0-5.0); HEMATOCRIT. 31.9 % (42.0-52.0); HEMOGLOBIN. 10.7 g/dL (14.0-18.0); LYMPHOCYTES % 22.7 % (20.0-50.0); MEAN CORPUSCULAR HEMOGLOBIN 30.7 pg (28.0-32.0); MEAN CORPUSCULAR HGB CONC 33.5 g/dL (31.0-37.0); MEAN CORPUSCULAR VOLUME 91.6 fL (80.0-94.0); MEAN PLATELET VOLUME 8.1 fl (7.4-10.4); MONOCYTES % 4.6 % (2.0-8.0); NEUTROPHILS % 68.4 % (40.0-76.0); PLATELET 242 x1000/uL (130-400); RED BLOOD CELL COUNT 3.49 mill/uL (4.7-6.1); RED CELL DISTRIBUTION WIDTH 15.4 % (11.6-14.6); WHITE BLOOD COUNT 7.6 x1000/uL (4.5-11.0)
[2016-06-20 07:54] LABS: CALCIUM 8.3 mg/dL (8.5-10.1)
[2016-06-20 08:00] VITALS: BP 126/87
[2016-06-20] MEDS: AMLODIPINE 10MG TABLET PO SCH (08:54)
[2016-06-20] MEDS: FUROSEMIDE 40MG/4ML VIAL IVP SCH (08:55)
[2016-06-20] MEDS: LISINOPRIL 10MG TABLET PO SCH ×2 (08:55→21:00)
[2016-06-20] MEDS: DOCUSATE SODIUM 100MG CAPSULE PO SCH ×2 (09:00→17:00)
[2016-06-20] MEDS: LEVOFLOXACIN 500MG TABLET PO SCH (11:16)
[2016-06-20 12:00] VITALS: BP 110/70
[2016-06-20 16:00] VITALS: BP 100/50
[2016-06-20 20:00] VITALS: BP 94/63
[2016-06-20] MEDS: ATORVASTATIN CALCIUM 40MG TABLET PO SCH (21:29)
[2016-06-21] VITALS: BP 102/58
[2016-06-21] MEDS: IPRATROPIUM/ALBUTEROL 0.5-3(2.5)MG/3ML NEB HHN SCH ×6 (00:16→21:09)
[2016-06-21 04:00] VITALS: BP 91/58
[2016-06-21] MEDS: GABAPENTIN 300MG CAPSULE PO SCH ×3 (06:33→21:24)
[2016-06-21] MEDS: LEVOTHYROXINE SODIUM 50MCG TABLET PO SCH (06:33)
[2016-06-21 08:00] VITALS: BP 139/82
[2016-06-21] MEDS: VERAPAMIL HCL 120MG TABLET PO SCH ×3 (09:27→16:00)
[2016-06-21] MEDS: DOCUSATE SODIUM 100MG CAPSULE PO SCH ×2 (09:27→16:29)
[2016-06-21] MEDS: AMLODIPINE 10MG TABLET PO SCH (09:27)
[2016-06-21] MEDS: LISINOPRIL 10MG TABLET PO SCH ×2 (09:27→21:00)
[2016-06-21] MEDS: FUROSEMIDE 40MG/4ML VIAL IVP SCH (09:28)
[2016-06-21] MEDS: LEVOFLOXACIN 500MG TABLET PO SCH (11:03)
[2016-06-21 16:00] VITALS: BP 102/72
[2016-06-21 20:00] VITALS: BP 96/58
[2016-06-21] MEDS: ATORVASTATIN CALCIUM 40MG TABLET PO SCH (21:24)
[2016-06-22] VITALS: BP 106/65
[2016-06-22] MEDS: IPRATROPIUM/ALBUTEROL 0.5-3(2.5)MG/3ML NEB HHN SCH ×6 (00:40→20:01)
[2016-06-22 04:00] VITALS: BP 120/72
[2016-06-22] MEDS: LEVOTHYROXINE SODIUM 50MCG TABLET PO SCH (06:45)
[2016-06-22] MEDS: GABAPENTIN 300MG CAPSULE PO SCH ×3 (06:45→21:20)
[2016-06-22 08:00] VITALS: BP 134/106
[2016-06-22] MEDS: VERAPAMIL HCL 120MG TABLET PO SCH ×4 (08:00→23:51)
[2016-06-22] MEDS: FUROSEMIDE 40MG/4ML VIAL IVP SCH (08:40)
[2016-06-22] MEDS: DOCUSATE SODIUM 100MG CAPSULE PO SCH ×2 (08:40→16:47)
[2016-06-22] MEDS: AMLODIPINE 10MG TABLET PO SCH (08:45)
[2016-06-22] MEDS: LISINOPRIL 10MG TABLET PO SCH ×2 (08:46→21:20)
[2016-06-22] MEDS: LEVOFLOXACIN 500MG TABLET PO SCH (10:08)
[2016-06-22 10:32] LABS: BASOPHILS % 1.2 % (0.0-2.0); EOSINOPHILS % 2.2 % (0.0-5.0); HEMATOCRIT. 32.2 % (42.0-52.0); HEMOGLOBIN. 10.7 g/dL (14.0-18.0); LYMPHOCYTES % 21.5 % (20.0-50.0); MEAN CORPUSCULAR HEMOGLOBIN 30.2 pg (28.0-32.0); MEAN CORPUSCULAR HGB CONC 33.1 g/dL (31.0-37.0); MEAN CORPUSCULAR VOLUME 91.2 fL (80.0-94.0); MEAN PLATELET VOLUME 7.6 fl (7.4-10.4); MONOCYTES % 3.4 % (2.0-8.0); NEUTROPHILS % 71.7 % (40.0-76.0); PLATELET 234 x1000/uL (130-400); RED BLOOD CELL COUNT 3.53 mill/uL (4.7-6.1); RED CELL DISTRIBUTION WIDTH 15.3 % (11.6-14.6); WHITE BLOOD COUNT 7.7 x1000/uL (4.5-11.0)
[2016-06-22 10:46] LABS: CALCIUM 8.3 mg/dL (8.5-10.1)
[2016-06-22 12:00] VITALS: BP 112/69
[2016-06-22 17:46] VITALS: BP 147/95
[2016-06-22 20:00] VITALS: BP 112/73
[2016-06-22] MEDS: ATORVASTATIN CALCIUM 40MG TABLET PO SCH (21:20)
[2016-06-23] VITALS: BP 142/96
[2016-06-23] MEDS: IPRATROPIUM/ALBUTEROL 0.5-3(2.5)MG/3ML NEB HHN SCH ×6 (00:20→20:44)
[2016-06-23] MEDS ORDERED: HYDROCODONE/ACETAMINOPHEN 5/325MG TABLET PO PRN ×2 (01:30→10:30)
[2016-06-23 04:00] VITALS: BP 112/83
[2016-06-23] MEDS: LEVOTHYROXINE SODIUM 50MCG TABLET PO SCH (06:12)
[2016-06-23] MEDS: GABAPENTIN 300MG CAPSULE PO SCH ×3 (06:12→21:09)
[2016-06-23 06:52] LABS: HEMOGLOBIN. 10.9 g/dL (14.0-18.0); MEAN CORPUSCULAR HEMOGLOBIN 30.1 pg (28.0-32.0); MEAN CORPUSCULAR VOLUME 91.2 fL (80.0-94.0); PLATELET 185 x1000/uL (130-400); RED BLOOD CELL COUNT 3.62 mill/uL (4.7-6.1); RED CELL DISTRIBUTION WIDTH 15.2 % (11.6-14.6); WHITE BLOOD COUNT 8.5 x1000/uL (4.5-11.0)
[2016-06-23 07:19] LABS: CALCIUM 8.4 mg/dL (8.5-10.1)
[2016-06-23 08:00] VITALS: BP 127/73
[2016-06-23] MEDS: DOCUSATE SODIUM 100MG CAPSULE PO SCH ×2 (09:00→16:08)
[2016-06-23] MEDS: LISINOPRIL 10MG TABLET PO SCH ×2 (09:08→21:00)
[2016-06-23] MEDS: VERAPAMIL HCL 120MG TABLET PO SCH ×2 (09:08→16:00)
[2016-06-23] MEDS: FUROSEMIDE 40MG/4ML VIAL IVP SCH (09:09)
[2016-06-23] MEDS: AMLODIPINE 10MG TABLET PO SCH (09:09)
[2016-06-23 11:58] VITALS: BP 146/81
[2016-06-23 16:00] VITALS: BP 107/71
[2016-06-23 20:00] VITALS: BP 105/66
[2016-06-23] MEDS: ATORVASTATIN CALCIUM 40MG TABLET PO SCH (21:09)
[2016-06-24] VITALS: BP 99/65
[2016-06-24] MEDS: IPRATROPIUM/ALBUTEROL 0.5-3(2.5)MG/3ML NEB HHN SCH ×5 (00:30→20:55)
[2016-06-24 04:00] VITALS: BP 129/78
[2016-06-24] MEDS: LEVOTHYROXINE SODIUM 50MCG TABLET PO SCH (06:48)
[2016-06-24] MEDS: GABAPENTIN 300MG CAPSULE PO SCH ×3 (06:48→21:40)
[2016-06-24 08:00] VITALS: BP 120/73
[2016-06-24] MEDS: DOCUSATE SODIUM 100MG CAPSULE PO SCH ×2 (09:23→16:42)
[2016-06-24] MEDS: FUROSEMIDE 40MG/4ML VIAL IVP SCH (09:23)
[2016-06-24] MEDS: AMLODIPINE 10MG TABLET PO SCH (09:24)
[2016-06-24] MEDS: LISINOPRIL 10MG TABLET PO SCH ×2 (09:24→21:00)
[2016-06-24] MEDS: VERAPAMIL HCL 120MG TABLET PO SCH ×3 (09:24→16:43)
[2016-06-24 11:44] VITALS: BP 103/63
[2016-06-24 13:31] LABS: BG BASE EXCESS 6.5 mmol/L (-2.0-2.0); BG CARBOXYHEMOGLOBIN 0.3 % (0.5-1.5); BG DEOXYHEMOGLOBIN 10.5 % (0.0-5.0); BG FRACTION INSPIRED OXYGEN 21; BG HCO3 ACT 31.1 mmol/L (22.0-26.0); BG METHEMOGLOBIN 0.1 % (0.0-1.5); BG OXYGEN SATURATION 89.5 % (92.0-98.5); BG OXYHEMOGLOBIN 89.1 % (94.0-97.0); BG PH 7.458 (7.350-7.450); BG PO2 56.3 mmHg (75.0-100.0); BG SAMPLE SITE RIGHT RADIAL; BG VENT MODE ROOM AIR
[2016-06-24 16:00] VITALS: BP 113/83
[2016-06-24] MEDS ORDERED: Levothyroxine Sodium PO (16:34)
[2016-06-24] MEDS ORDERED: VERA120T PO (16:34)
[2016-06-24 20:00] VITALS: BP 102/60
[2016-06-24] MEDS: ATORVASTATIN CALCIUM 40MG TABLET PO SCH (21:40)
[2016-06-25] VITALS: BP 103/65
[2016-06-25] MEDS: IPRATROPIUM/ALBUTEROL 0.5-3(2.5)MG/3ML NEB HHN SCH ×4 (00:32→11:26)
[2016-06-25 04:00] VITALS: BP 108/77
[2016-06-25] MEDS: GABAPENTIN 300MG CAPSULE PO SCH ×2 (06:54→13:00)
[2016-06-25] MEDS: LEVOTHYROXINE SODIUM 50MCG TABLET PO SCH (06:54)
[2016-06-25 07:30] LABS: BASOPHILS % 0.2 % (0.0-2.0); EOSINOPHILS % 2.6 % (0.0-5.0); HEMATOCRIT. 32.6 % (42.0-52.0); HEMOGLOBIN. 10.8 g/dL (14.0-18.0); LYMPHOCYTES % 24.1 % (20.0-50.0); MEAN CORPUSCULAR HEMOGLOBIN 30.1 pg (28.0-32.0); MEAN CORPUSCULAR HGB CONC 33.2 g/dL (31.0-37.0); MEAN CORPUSCULAR VOLUME 90.6 fL (80.0-94.0); MONOCYTES % 3.3 % (2.0-8.0); NEUTROPHILS % 69.8 % (40.0-76.0); PLATELET 234 x1000/uL (130-400); RED CELL DISTRIBUTION WIDTH 14.9 % (11.6-14.6)
[2016-06-25 07:57] LABS: CALCIUM 8.4 mg/dL (8.5-10.1)
[2016-06-25] MEDS: VERAPAMIL HCL 120MG TABLET PO SCH ×2 (08:11)
[2016-06-25] MEDS: FUROSEMIDE 40MG/4ML VIAL IVP SCH (08:14)
[2016-06-25] MEDS: LISINOPRIL 10MG TABLET PO SCH (08:14)
[2016-06-25] MEDS: AMLODIPINE 10MG TABLET PO SCH (08:14)
[2016-06-25] MEDS: DOCUSATE SODIUM 100MG CAPSULE PO SCH (08:15)
[2016-06-25 08:17] VITALS: BP 127/76
[2016-06-25 12:00] VITALS: BP 122/68
[2016-06-25 14:29] VITALS: BP 116/68
== END 2016-06-25 15:20 | disposition home or self-care (01) | DRG 460 ==
LOC: ER 19:41 → 8WST 23:28
PROVIDERS: ADMIT Internal Medicine; ATTEND Internal Medicine
PROC: 05H933Z Insertion of Infusion Device into Right Brachial Vein, Percutaneous Approach (ICD-10-PCS; 2016-06-14)
PROC: B54MZZA Ultrasonography of Right Upper Extremity Veins, Guidance (ICD-10-PCS; 2016-06-14)
PROC: 5A09457 Assistance with Respiratory Ventilation, 24-96 Consecutive Hours, Continuous Positive Airway Pressure (ICD-10-PCS; principal; 2016-06-15)
DX: N17.9 Acute kidney failure, unspecified (principal); J96.01 Acute respiratory failure with hypoxia; J18.9 Pneumonia, unspecified organism; M62.82 Rhabdomyolysis; I24.9 Acute ischemic heart disease, unspecified; Z68.42 Body mass index [BMI] 45.0-49.9, adult; Z99.81 Dependence on supplemental oxygen; N39.0 Urinary tract infection, site not specified; N18.3 Chronic kidney disease, stage 3 (moderate); E66.01 Morbid (severe) obesity due to excess calories; N28.1 Cyst of kidney, acquired; I12.9 Hypertensive chronic kidney disease with stage 1 through stage 4 chronic kidney disease, or unspecified chronic kidney disease; E03.9 Hypothyroidism, unspecified; D64.9 Anemia, unspecified; E78.5 Hyperlipidemia, unspecified; F17.210 Nicotine dependence, cigarettes, uncomplicated; G47.33 Obstructive sleep apnea (adult) (pediatric); F14.10 Cocaine abuse, uncomplicated; F12.10 Cannabis abuse, uncomplicated; T40.5X5A Adverse effect of cocaine, initial encounter; E87.70 Fluid overload, unspecified; M48.00 Spinal stenosis, site unspecified; Z59.0 Homelessness; Y92.89 Other specified places as the place of occurrence of the external cause; Z82.49 Family history of ischemic heart disease and other diseases of the circulatory system
CPT/HCPCS: 36415; 36569; 36600; 71010; 74176; 76770; 76937; 78580; 80048; 80053; 80061; 80305; 81001; 82270; 82375; 82550; 82553; 82805; 83690; 83735; 83880; 84100; 84484; 85025; 85610; 85730; 87040; 87070; 87086; 93005; 93306; 94640; 94660; 96365; 96366; 97116; 97162; 97530; 97535; 99285; C1725; C1893; G0482; J1940; J1956; J7030; J7040; J7050; J7131; J7620; Q0162

== ENCOUNTER 2016-08-11 16:24 | Emergency (ER) | payer MEDICAID ==
[~2016-08-11] VITALS: Ht 177.8 cm; Wt 160.0 kg
[~2016-08-11 16:24] MED LIST changes: -LEVO300T6 PO; +Levothyroxine Sodium PO; +VERA120T PO
[2016-08-11 18:42] LABS: CLARITY URINE CLEAR (CLEAR); COLOR URINE YELLOW (YELLOW); GLUCOSE URINE NEGATIVE (NEGATIVE); KETONES URINE NEGATIVE (NEGATIVE); LEUKOCYTE ESTERASE URINE NEGATIVE (NEGATIVE); NITRITE URINE NEGATIVE (NEGATIVE); OCCULT BLOOD URINE TRACE (NEGATIVE); PROTEIN URINE NEGATIVE (NEGATIVE); SPECIFIC GRAVITY URINE 1.019 (1.005-1.030); UROBILINOGEN URINE 0.2 E.U./dL (0.2-1.0)
[2016-08-11 19:06] LABS: *AMPHETAMINES SCREEN URINE NEGATIVE (NEGATIVE); *BARBITURATES SCREEN URINE NEGATIVE (NEGATIVE); *BENZODIAZEPINES SCREEN URINE NEGATIVE (NEGATIVE); *COCAINE SCREEN URINE PRESUMTIVE POSITIVE (NEGATIVE); CANNABINOID URINE SCREEN PRESUMTIVE POSITIVE (NEGATIVE); METHADONE URINE SCREEN NEGATIVE (NEGATIVE); OPIATES URINE SCREEN NEGATIVE (NEGATIVE); PHENCYCLIDINE URINE SCREEN NEGATIVE (NEGATIVE)
[2016-08-11 19:40] LABS: HEMATOCRIT. 32.5 % (42.0-52.0); HEMOGLOBIN. 10.9 g/dL (14.0-18.0); MEAN CORPUSCULAR VOLUME 89.6 fL (80.0-94.0); MEAN PLATELET VOLUME 7.9 fl (7.4-10.4); PLATELET 221 x1000/uL (130-400); RED BLOOD CELL COUNT 3.63 mill/uL (4.7-6.1); RED CELL DISTRIBUTION WIDTH 16.9 % (11.6-14.6)
[2016-08-11 19:46] LABS: CHLORIDE 103 mEq/L (98-107)
[2016-08-11 19:54] LABS: CARBON DIOXIDE 30 mEq/L (21-32); ETHANOL BLOOD < 10 mg/dL
[2016-08-11 19:59] LABS: PLATELET ESTIMATE NORMAL
[2016-08-11] MEDS ORDERED: KETOROLAC 60MG/2ML VIAL IM NR (20:00)
[2016-08-11] MEDS ORDERED: ALBUTEROL (0.083%) 2.5MG/3ML NEB HHN STA (21:32)
[2016-08-11] MEDS ORDERED: IPRATROPIUM BROMIDE (0.02%) 0.5MG/2.5ML NEB HHN STA (21:32)
[2016-08-12 00:30] VITALS: BP 174/95
== END 2016-08-12 01:40 | disposition home or self-care (01) ==
LOC: ER 16:42
DX: R60.0 Localized edema (principal); F14.10 Cocaine abuse, uncomplicated; J20.9 Acute bronchitis, unspecified; M54.5 Low back pain; E05.90 Thyrotoxicosis, unspecified without thyrotoxic crisis or storm; I10 Essential (primary) hypertension; R05 Cough; R09.81 Nasal congestion; Z79.82 Long term (current) use of aspirin
CPT/HCPCS: 36415; 71010; 80053; 80305; 81001; 85025; 93970; 94640; 96372; 99285; G0482; J1885; J7611; Z7610

== ENCOUNTER 2018-11-19 14:04 | Emergency (ER) | payer MEDICAID ==
[~2018-11-19] VITALS: Ht 180.3 cm; Wt 160.0 kg
[2018-11-19] MEDS ORDERED: HYDROCODONE/ACETAMINOPHEN 5/325MG TABLET PO ONE (15:45)
[2018-11-19] MEDS ORDERED: KETOROLAC 60MG/2ML VIAL IM ONE (15:45)
[2018-11-19 15:52] VITALS: BP 161/88
== END 2018-11-19 17:12 | disposition home or self-care (01) ==
LOC: ER 14:04
DX: S50.01XA Contusion of right elbow, initial encounter (principal); M19.90 Unspecified osteoarthritis, unspecified site; I10 Essential (primary) hypertension; M32.9 Systemic lupus erythematosus, unspecified; E05.90 Thyrotoxicosis, unspecified without thyrotoxic crisis or storm; F12.10 Cannabis abuse, uncomplicated; Z79.82 Long term (current) use of aspirin; W10.8XXA Fall (on) (from) other stairs and steps, initial encounter; Y93.89 Activity, other specified; Y92.018 Other place in single-family (private) house as the place of occurrence of the external cause
CPT/HCPCS: 73080; 96372; 99283; J1885; A4565

== ENCOUNTER 2019-12-14 06:23 | Emergency (ER) | payer OTHER ==
[~2019-12-14] VITALS: Ht 185.4 cm; Wt 127.0 kg
[2019-12-14] MEDS ORDERED: ONDANSETRON 4MG ODT PO STA (07:09)
[2019-12-14] MEDS ORDERED: MORPHINE SULFATE 4 MG/ML CPJ (NOT FOR IM USE) IV STA (07:09)
[2019-12-14] MEDS ORDERED: ENALAPRIL 2.5MG/2ML VIAL 2ML IV ONE (07:15)
[2019-12-14 08:08] LABS: BASOPHILS % 1.1 % (0.0-2.0); EOSINOPHILS % 1.1 % (0.0-5.0); HEMATOCRIT. 35.2 % (42.0-52.0); HEMOGLOBIN. 11.8 g/dL (14.0-18.0); MEAN CORPUSCULAR HEMOGLOBIN 31.3 pg (28.0-32.0); MEAN CORPUSCULAR VOLUME 93.7 fL (80.0-94.0); MEAN PLATELET VOLUME 8.6 fl (7.4-10.4); MONOCYTES % 4.7 % (2.0-8.0); NEUTROPHILS % 79.1 % (40.0-76.0); PLATELET 200 x1000/uL (130-400); RED BLOOD CELL COUNT 3.76 mill/uL (4.7-6.1); RED CELL DISTRIBUTION WIDTH 15.8 % (11.6-14.6)
[2019-12-14 08:11] LABS: CLARITY URINE CLEAR (CLEAR); COLOR URINE YELLOW (YELLOW); KETONES URINE NEGATIVE (NEGATIVE); LEUKOCYTE ESTERASE URINE NEGATIVE (NEGATIVE); NITRITE URINE NEGATIVE (NEGATIVE); OCCULT BLOOD URINE NEGATIVE (NEGATIVE); PH URINE 6.5 (4.5-8.0); PROTEIN URINE NEGATIVE (NEGATIVE); SPECIFIC GRAVITY URINE 1.018 (1.005-1.030); UROBILINOGEN URINE 0.2 E.U./dL (0.2-1.0)
[2019-12-14 08:14] LABS: CHLORIDE 107 mEq/L (98-107)
[2019-12-14] MEDS ORDERED: ENALAPRIL 1.25MG/ML VIAL 1ML IV ONE (08:45)
[2019-12-14] MEDS ORDERED: FUROSEMIDE 40MG/4ML VIAL IVP ONE (09:15)
[2019-12-14 11:11] VITALS: BP 143/98
== END 2019-12-14 12:45 | disposition short-term general hospital (02) ==
LOC: ER 06:44
DX: E05.90 Thyrotoxicosis, unspecified without thyrotoxic crisis or storm (principal); I11.0 Hypertensive heart disease with heart failure; I50.9 Heart failure, unspecified; J45.909 Unspecified asthma, uncomplicated; E03.9 Hypothyroidism, unspecified; M32.9 Systemic lupus erythematosus, unspecified; G47.30 Sleep apnea, unspecified; Z79.82 Long term (current) use of aspirin
CPT/HCPCS: 36415; 71045; 80053; 81003; 83880; 84484; 85025; 93005; 96374; 96375; 99285; J1940; J2270; J3490; Q0162; Z7610

== ENCOUNTER 2021-01-20 14:38 | Emergency (ER) | payer OTHER ==
[~2021-01-20] VITALS: Ht 180.3 cm; Wt 163.0 kg
[2021-01-20 16:45] LABS: BASOPHILS % 0.6 % (0.0-2.0); EOSINOPHILS % 1.3 % (0.0-5.0); HEMATOCRIT. 38.5 % (42.0-52.0); HEMOGLOBIN. 12.5 g/dL (14.0-18.0); LYMPHOCYTES % 16.1 % (20.0-50.0); MEAN CORPUSCULAR HEMOGLOBIN 29.7 pg (28.0-32.0); MEAN CORPUSCULAR VOLUME 91.5 fL (80.0-94.0); MEAN PLATELET VOLUME 8.4 fl (7.4-10.4); MONOCYTES % 5.5 % (2.0-8.0); NEUTROPHILS % 76.5 % (40.0-76.0); PLATELET 234 x1000/uL (130-400); RED BLOOD CELL COUNT 4.21 mill/uL (4.7-6.1); RED CELL DISTRIBUTION WIDTH 16.9 % (11.6-14.6)
[2021-01-20 16:50] LABS: CHLORIDE 104 mEq/L (98-107)
[2021-01-20] MEDS ORDERED: IOHEXOL-300 100 ML BOTTLE ONE (21:49)
[2021-01-20] MEDS ORDERED: VANCOMYCIN 1 G PREMIX 200 ML IV SCH (23:30)
[2021-01-20] MEDS ORDERED: CLINDAMYCIN 600MG PREMIX 50 ML IV NR (23:30)
[2021-01-20] MEDS ORDERED: CLINDAMYCIN 600 MG in DEXTROSE 5% WATER 50 ML IV ONE (23:30)
[2021-01-21] MEDS ORDERED: CEFTRIAXONE 1 G PREMIX 50 ML IV ONE (00:15)
[2021-01-21 02:00] VITALS: BP 146/75
== END 2021-01-21 02:38 | disposition short-term general hospital (02) ==
LOC: ER 14:38
DX: L02.11 Cutaneous abscess of neck (principal); F12.10 Cannabis abuse, uncomplicated; E78.00 Pure hypercholesterolemia, unspecified; J45.909 Unspecified asthma, uncomplicated; I10 Essential (primary) hypertension; Z98.890 Other specified postprocedural states; Z79.899 Other long term (current) drug therapy
CPT/HCPCS: 36415; 71045; 74177; 80053; 83880; 84484; 85025; 87040; 93005; 96365; 96368; 99285; J0696; J3370; J3490; Q9967; J7060